=== PATIENT | female | born 1985 | race Asian ===

== ENCOUNTER 2025-02-26 17:00 | Emergency (ER) | payer MEDICAID, SELFPAY ==
[2025-02-26 17:02] VITALS: BMI 27.0
[2025-02-26 17:28] VITALS: BP 125/82; PULSE 95; RESP 16; TEMP 36.7; O2SAT 98; BMI 28.0
--- NOTE | 2025-02-26 17:47 | XR_ITS ---
Examination: OB Transvaginal ultrasound of the pelvis, complete Technique: Transvaginal sonographic images pelvis performed using talley scale imaging Exam date and time: February 26, 2025 at 1917 hrs. Indications: Vaginal bleeding and cramping beginning one week ago, history right ectopic 2019 Findings: Uterus 6.2 cm x 6.3 cm endometrial stripe 1.9 cm No intrauterine gestation Right ovary 2.9 cm arterial flow Left ovary 3.5 cm arterial flow with poorly defined ovarian borders, no adnexal gestational sac Impression: No intrauterine gestation Left ovary 3.5 cm arterial flow with poorly defined ovarian borders, early left ectopic would be included in the differential Recommend short-term follow-up transvaginal pelvic sonography
--- NOTE | 2025-02-26 17:47 | PD.EDRME ---
Rapid Medical Screening Exam RME Arrival date/time: 02/26/25 17:00 Chief Complaint: OB/Uterine Contractions Time Seen by Provider: 02/26/25 17:28 Vital signs: Vital Signs Temperature 98.0 F 02/26/25 17:28 Pulse Rate 95 02/26/25 17:28 Respiratory Rate 16 02/26/25 17:28 Blood Pressure 125/82 02/26/25 17:28 Pulse Oximetry (%) 98 02/26/25 17:28 Oxygen Delivery Method Room Air 02/26/25 17:28 Vital signs reviewed by provider: Yes RME Narrative: Female, AB/ectopic 1, presents to the ED after finding out she was yesterday and confirmed at the clinic today She is complaining of left lower pelvic cramping as well as bleeding. Her Billon SASH FINISHER is unknown as she has been very irregular, however she does think that it was approximately 2 months ago. Labs and OB less than 14-week ultrasound ordered and pending. I have greeted and performed a focused initial assessment of this patient. A comprehensive ED assessment and evaluation of the patient, analysis of all test results, and completion of the medical decision making process will be conducted by additional ED providers.
[2025-02-26 18:10] LABS: Basophils % (Auto) 0 % (0-2.5); Eosinophils # (Auto) 0.1 Thou/mm3 (0.0-0.5); Eosinophils % (Auto) 2 % (0-10); Hematocrit 34.9 % (36.0-46.0); Hemoglobin 11.9 g/dL (12.0-16.0); Immature Granulocytes % (Auto) 0 % (0-0); Immature Granulocytes Auto 0.02 Thou/mm3 (0.00-0.00); Lymphocytes % (Auto) 29 % (10-50); Mean Corpuscular HGB Conc 34.1 g/dl (31.0-37.0); Mean Corpuscular Volume 82 fL (80-100); Monocytes # (Auto) 0.7 Thou/mm3 (0.0-0.8); Monocytes % (Auto) 10 % (0-12); Neutrophils # (Auto) 4.1 Thou/mm3 (1.8-7.7); Neutrophils % (Auto) 59 % (37-80); Nucleated Red Blood Cell % 0 /100 WBC (0); Platelet Count 321 Thou/mm3 (140-440); RDW Standard Deviation 37.4 fL (36.4-46.3); Red Blood Count 4.25 Miln/mm3 (4.00-5.20)
[2025-02-26 18:46] LABS: Alanine Aminotransferase 16 U/L (10-49); Albumin/Globulin Ratio 1.7 (1.2-2.2); Alkaline Phosphatase 52 U/L (46-116); Anion Gap 8 (7-16); Aspartate Amino Transferase 17 U/L (0-34); BUN/Creatinine Ratio 11 Ratio (12-20); Beta HCG,Quantitative 416 mIU/mL (<5.0); Bilirubin,Total 0.7 mg/dL (0.3-1.2); Blood Urea Nitrogen 8 mg/dL (9-23); Calcium 9.7 mg/dL (8.3-10.6); Calcium (Corrected) 9.7 mg/dL (8.5-10.1); Carbon Dioxide 25.5 mMol/L (20.0-31.0); Chloride 105 mMol/L (98-107); Creatinine (Component) 0.7 mg/dL (0.6-1.3); Estimated Creatinine Clearance 94.7 mL/min (>60); Globulin 2.9 gm/dL (2.3-3.5); Glucose 95 mg/dL (74-106); Osmolality,Calculated 273 (275-295); Potassium 4.2 mMol/L (3.4-5.1); Sodium 138 mMol/L (136-145); Total Protein 7.9 gm/dL (5.7-8.2); eGFR > 60 See Note
[2025-02-26 20:03] LABS: Collection Type, Urine Clean Catch
[2025-02-26 20:15] LABS: Bilirubin,Urine Negative (Negative); Blood,Urine 3+ (Negative); Clarity,Urine Clear (Clear/Hazy); Color,Urine Colorless (Lt Yel-Yel); Culture Indicated,Urine Not Indicated; Glucose, Urine Negative (Negative); Ketones,Urine Negative (Negative); Leukocyte Esterase,Urine Negative (Negative); Nitrite,Urine Negative (Negative); PH,Urine 6.5 (5.0-7.0); Protein,Urine Negative (Neg - Trace); RBC,Urine 51 /hpf (0-3); Specific Gravity,Urine 1.007 (1.001-1.035); Squamous Epithelial Cell,Urine 1 /hpf (0-5); Urobilinogen,Urine Negative mg/dL (0.0-1.0); WBC,Urine 2 /hpf (0-5)
[2025-02-26 20:32] VITALS: BP 132/86; PULSE 68; RESP 18; O2SAT 98
--- NOTE | 2025-05-13 15:08 | PD.EDPREG ---
ED OB Contraction Preg RMI/HPI General Chief complaint: OB/Uterine Contractions Stated complaint: NEWLY W/ CRAMPING & BLEEDING Time Seen by Provider: 02/26/25 17:28 Arrival date/time: 02/26/25 17:00 RME / HPI RME / HPI Narrative: Female, AB/ectopic 1, presents to the ED after finding out she was yesterday and confirmed at the clinic today She is complaining of left lower pelvic cramping as well as bleeding. Her Billon VETERINARIAN ASSISTANT is unknown as she has been very irregular, however she does think that it was approximately 2 months ago. Labs and OB less than 14-week ultrasound ordered and pending. Related Data Home Medications ?Medication ?Instructions ?Recorded ?Confirmed atorvastatin 10 mg tablet 10 mg PO QDAY 02/27/25 03/13/25 metformin 500 mg tablet 500 mg PO QDAY 02/27/25 03/13/25 semaglutide 0.25 mg or 0.5 mg (2 0.25 mg subcut QWEEK 02/27/25 03/13/25 mg/1.5 mL) subcutaneous pen injector (Ozempic) Allergies Allergy/AdvReac Type Severity Reaction Status Date / Time No Known Allergies Allergy Verified 03/13/25 08:44 Review of Systems Review of Systems Systems Reviewed: All systems reviewed, normal except as documented Past Medical History Past Medical History NEUROLOGIC: Negative Cerebrovascular Accident, Transient Ischemic Attacks (TIA), Dementia, Alzheimer's Disease, Parkinson's Disease, Brain Tumor or Seizures CARDIAC: Negative Myocardial Infarction, Cardiac Arrhythmia, Atrial Fibrillation, Angina, Heart Murmur or Congestive Heart Failure RESPIRATORY: Negative Chronic Obstructive Pulmonary Disease (COPD), Asthma, Bronchitis, Emphysema, Pneumonia, Cough, Sputum Production, Wheezing, Chest Deformities, Smoking, Smoking Cessation Counseling, Smoking Exposure, Tobacco Use or Clubbing GASTROINTESTINAL: Negative Liver Cancer, Hepatitis, Cirrhosis, Pancreatic Cancer or Pancreatitis GENITOURINARY: Negative Renal Disease or Kidney Stones REPRODUCTIVE: Negative Breast Cancer, Endometriosis, Fibroids or Genital Herpes MUSCULOSKELETAL: Negative Muscular Dystrophy, Myasthenia Gravis, Marfan's Syndrome, Bone Cancer, Arthritis, Gout, Scoliosis or Carpal Tunnel Syndrome ENT: Negative Cataracts, Glaucoma, Blind, Retinal Detachment, Macular Degeneration or Ear Infection ENDOCRINE: Negative Diabetes Mellitus Type 1 or Diabetes Mellitus Type 2 HEMATOLOGIC: Negative Anemia, Leukemia, Hemophilia, Thalassemia, Sickle Cell Disease or Clotting Problems PSYCHO/SOCIAL: Negative Schizophrenia, Recreational Drug Use, Bipolar Disorder, Depression or Anxiety OTHER HISTORY: Positive Hospitalization; Negative Autoimmune Disease, Down Syndrome, Autism, Developmental Delay, Blood Transfusions, Blood Transfusion Reaction, Anesthesia Reactions or Breast Cancer Social History SMOKING STATUS: Never smoker SECOND HAND EXPOSURE: No Course Orders Category Date Time Status US OB transvaginal Stat Exams 02/26/25 17:47 Completed ABO/RH Type Stat Lab 02/26/25 18:05 Completed Beta HCG,Quantitative Stat Lab 02/26/25 18:20 Completed CBC Stat Lab 02/26/25 17:38 Completed CMP [Comprehensive Metabolic Panel] Stat Lab 02/26/25 18:20 Completed UA, C/S IF [Urinalysis, C/S if Indicated] Stat Lab 02/26/25 18:14 Completed Vital Signs Vital signs: Vital Signs Temperature 98.0 F 02/26/25 17:28 Pulse Rate 95 02/26/25 17:28 Respiratory Rate 16 02/26/25 17:28 Blood Pressure 125/82 02/26/25 17:28 Pulse Oximetry (%) 98 02/26/25 17:28 Oxygen Delivery Method Room Air 02/26/25 17:28 Discharge Plan Plan Patient Disposition: HOME (Self Care) Health Concerns: Discussed case with Dr. Thurman. Follow-up with your primary care physician in 24 to 48 hours. Return to the ED for any new or worsening symptoms.home and have patient follow up in his office tomorrow as a Walk-In. Prescriptions/Referrals Prescriptions/Med Rec: No Action metformin 500 mg tablet 500 mg PO QDAY atorvastatin 10 mg tablet 10 mg PO QDAY Ozempic 0.25 mg or 0.5 mg(2 mg/1.5 mL) pen injector 0.25 mg subcut QWEEK Rx Instructions: for 4 weeks Referrals: Chintan Thurman MD [Physician] - 02/27/25 (Go to his office as a Walk-In.) No Primary/Family,Physician [Primary Care Provider] - In 1 week Problem List Clinical Impression: Ectopic of left ovary Impression comment: Possible Early Left Ectopic Patient/Caregiver Discharge Instructions Education Materials: Ectopic Additional Instructions: Follow-up with Dr. Thurman tomorrow morning as a walk-in patient. Print Language: Algerian Stand Alone Forms: Bernadette Award Info., Patient Portal Info Letter PA/CAREER COACH Supervising Physician PA/CAREER COACH Supervising Physician: Dr. Lewis
--- NOTE | 2025-05-13 16:55 | EDNOTE_ITS ---
ED General RME/HPI General Chief complaint: OB/Uterine Contractions Stated complaint: NEWLY W/ CRAMPING & BLEEDING Time Seen by Provider: 02/26/25 17:28 Arrival date/time: 02/26/25 17:00 RME / HPI RME / HPI narrative: Female, AB/ectopic 1, presents to the ED after finding out she was yesterday and confirmed at the clinic today She is complaining of left lower pelvic cramping as well as bleeding. Her LMP is unknown as she has been very irregular, however she does think that it was approximately 2 months ago. Labs and OB less than 14-week ultrasound ordered and pending. Related Data Home Medications ?Medication ?Instructions ?Recorded ?Confirmed atorvastatin 10 mg tablet 10 mg PO QDAY 02/27/2503/13 metformin 500 mg tablet 500 mg PO QDAY 02/27/2502/14 semaglutide 0.25 mg or 0.5 mg (2 0.25 mg subcut QWEEK 02/27/25 03/13/25 mg/1.5 mL) subcutaneous pen injector (Ozempic) Allergies Allergy/AdvReac Type Severity Reaction Status Date / Time No Known Allergies Allergy Verified 03/13/25 08:44 Review of Systems Review of Systems Systems Reviewed: All systems reviewed, normal except as documented Past Medical History Past Medical History NEUROLOGIC: Negative Cerebrovascular Accident, Transient Ischemic Attacks (TIA), Dementia, Alzheimer's Disease, Parkinson's Disease, Brain Tumor or Seizures CARDIAC: Negative Myocardial Infarction, Cardiac Arrhythmia, Atrial Fibrillation, Angina, Heart Murmur or Congestive Heart Failure RESPIRATORY: Negative Chronic Obstructive Pulmonary Disease (COPD), Asthma, Bronchitis, Emphysema, Pneumonia, Cough, Sputum Production, Wheezing, Chest Deformities, Smoking, Smoking Cessation Counseling, Smoking Exposure, Tobacco Use or Clubbing GASTROINTESTINAL: Negative Liver Cancer, Hepatitis, Cirrhosis, Pancreatic Cancer or Pancreatitis GENITOURINARY: Negative Renal Disease or Kidney Stones REPRODUCTIVE: Negative Breast Cancer, Endometriosis, Fibroids or Genital Herpes MUSCULOSKELETAL: Negative Muscular Dystrophy, Myasthenia Gravis, Marfan's Syndrome, Bone Cancer, Arthritis, Gout, Scoliosis or Carpal Tunnel Syndrome ENT: Negative Cataracts, Glaucoma, Blind, Retinal Detachment, Macular Degeneration or Ear Infection ENDOCRINE: Negative Diabetes Mellitus Type 1 or Diabetes Mellitus Type 2 HEMATOLOGIC: Negative Anemia, Leukemia, Hemophilia, Thalassemia, Sickle Cell Disease or Clotting Problems PSYCHO/SOCIAL: Negative Schizophrenia, Recreational Drug Use, Bipolar Disorder, Depression or Anxiety OTHER HISTORY: Positive Hospitalization; Negative Autoimmune Disease, Down Syndrome, Autism, Developmental Delay, Blood Transfusions, Blood Transfusion Reaction, Anesthesia Reactions or Breast Cancer Social History SMOKING STATUS: Never smoker SECOND HAND EXPOSURE: No Course Orders Category Date Time Status US OB transvaginal Stat Exams 02/26/25 17:47 Completed ABO/RH Type Stat Lab 02/26/25 18:05 Completed Beta HCG,Quantitative Stat Lab 02/26/25 18:20 Completed CBC Stat Lab 02/26/25 17:38 Completed CMP [Comprehensive Metabolic Panel] Stat Lab 02/26/25 18:20 Completed UA, C/S IF [Urinalysis, C/S if Indicated] Stat Lab 02/26/25 18:14 Completed Vital Signs Vital signs: Vital Signs Temperature 98.0 F 02/26/25 17:28 Pulse Rate 95 02/26/25 17:28 Respiratory Rate 16 02/26/25 17:28 Blood Pressure 125/82 02/26/25 17:28 Pulse Oximetry (%) 98 02/26/25 17:28 Oxygen Delivery Method Room Air 02/26/25 17:28 Discharge Plan Plan Patient Disposition: HOME (Self Care) Health Concerns: Discussed case with Dr. Thurman. Follow-up with your primary care physician in 24 to 48 hours. Return to the ED for any new or worsening symptoms.home and have patient follow up in his office tomorrow as a Walk-In. Prescriptions/Referrals Prescriptions/Med Rec: No Action metformin 500 mg tablet 500 mg PO QDAY atorvastatin 10 mg tablet 10 mg PO QDAY Ozempic 0.25 mg or 0.5 mg(2 mg/1.5 mL) pen injector 0.25 mg subcut QWEEK Rx Instructions: for 4 weeks Referrals: Chintan Thurman MD [Physician] - 02/27/25 (Go to his office as a Walk-In.) No Primary/Family,Physician [Primary Care Provider] - In 1 week Problem List Clinical Impression: Ectopic of left ovary Impression comment: Possible Early Left Ectopic Patient/Caregiver Discharge Instructions Education Materials: Ectopic Additional Instructions: Follow-up with Dr. Thurman tomorrow morning as a walk-in patient. Print Language: Kazakh Stand Alone Forms: Bernadette Award Info., Patient Portal Info Letter PA/MAIL DISTRIBUTION SCHEME EXAMINER Supervising Physician PA/MAIL DISTRIBUTION SCHEME EXAMINER Supervising Physician: Dr. Lewis
== END 2025-02-26 20:33 | disposition home or self-care (01) ==
PROVIDERS: Emergency Provider Physician Assistant
DX: O00.202 Left ovarian pregnancy without intrauterine pregnancy (principal)
CPT/HCPCS: 36415; 76817; 80053; 81001; 84702; 85025; 86900; 86901; 99284

== ENCOUNTER 2025-02-27 09:08 | Outpatient (AMB) | payer MEDICAID, SELFPAY ==
[2025-02-27 09:52] VITALS: BP 114/75; PULSE 87; RESP 16; TEMP 36.4; O2SAT 98; BMI 27.8
--- NOTE | 2025-02-27 09:52 | GYNCLNT_ITS ---
Vital Signs 02/27/25 09:52 Height 1.55 m Height Method Stated Weight 66.791 kg Weight Measurement Method Standing Scale BMI 27.8 BP 114/75 Blood Pressure Source Automatic Cuff Blood Pressure Location Left Upper Arm Position Sitting Respiration 16 Pulse 87 Pulse Source Monitor Temp 97.6 F Temp Source Oral Pulse Oximetry (%) 98 Oxygen Delivery Method Room Air Allergies/Home Meds Allergies & Medications Allergies No Known Allergies Allergy (Verified 02/27/25 09:53) Medication Reconciliation atorvastatin 10 mg tablet 10 mg PO QDAY 02/27/25 [History Confirmed 02/27/25] metformin 500 mg tablet 500 mg PO QDAY 02/27/25 [History Confirmed 02/27/25] semaglutide 0.25 mg or 0.5 mg (2 mg/1.5 mL) subcutaneous pen injector (Ozempic) 0.25 mg subcut QWEEK 02/27/25 [History Confirmed 02/27/25] Intake Visit Data Collection New Patient or Established: Established Patient (seen at [facility] within 3 years) Reason for Visit:: EMERGENCY ROOM FOLLOW UP Seen by Clinical Staff ONLY (RN/MA): No Kitchen Work Supervisor Required: No Do You Feel Safe at Home: Yes Authorities Contacted: N/A PCP or OBGYN visit in last 3 months: No Hx Now: No Are you currently on any form of Control: Yes Last menstrual period: 01/11/25 Pain Present Currently: No Pain Scale Used: Castellon-Sky/Numerical Pain scale:: 0 Smoking Status Smoking Status: Never smoker Email Operations Manager history Email Operations Manager History Menstrual regularity: irregular Flow: normal Monthly: No How many days does period last: 6 Age at menarche: 13 Currently sexually active: Yes Questionnaires Covid-19 Vaccine Questionnaire Has patient been vacinated for Covid-19 Have you been vacinated for Covid-19: Yes PHQ-9 PHQ-2 Over the last 2 weeks, how often have you been bothered by any of the following problems? 1. Little interest or pleasure in doing things: not at all 2. Feeling down, depressed, or hopeless: not at all Total score: 0 PHQ-9 3. Trouble falling or staying asleep, or sleeping too much: Not at all 4. Feeling tired or having little energy: Not at all 5. Poor appetite or overeating: Not at all 6. Feeling bad about yourself - or that you are a failure or have let yourself or your family down: Not at all 7. Trouble concentrating on things, such as reading the newspaper or watching television: Not at all 8. Moving or speaking so slowly that other people could have noticed? - Or the opposite - being so fidgety or restless that you have been moving around a lot more than usual: not at all 9. Thoughts that you would be better off or of hurting yourself in some way: Not at all Total score: 0 Source: Developed by Drs. Inderjit Mcfarlane, Nelida Alvarez, Raymond Busch and colleagues, with an educational lamberto from [employer]. Depression screen completed yes Social History Tobacco History Smoking Status: Never smoker Domestic Abuse History Do You Feel Safe at Home: Yes Past Medical History Past Medical History Have you ever been diagnosed with any of the following: Neurological Problems Cerebrovascular Accident (CVA): No Transient Ischemic Attacks (TIA): No Dementia: No Alzheimer's Disease: No Parkinson's Disease: No Brain Tumor: No Seizures: No Cardiology Problems Myocardial Infarction: No Cardiac Arrhythmia: No Atrial Fibrillation: No Angina: No Heart Murmur: No Congestive Heart Failure: No Respiratory Problems Chronic Obstructive Pulmonary Disease (COPD): No Asthma: No Bronchitis: No Emphysema: No Pneumonia: No Hx Cough: No Cough: No Wheezing: No Chest Deformities: No Smoking: No Smoking Cessation Counseling: No Smoking Exposure: No Tobacco Use: No Clubbing: No Stomache/Intestinal Problems Liver Cancer: No Hepatitis: No Cirrhosis: No Pancreatic Cancer: No Pancreatitis: No Genital/Urinary Problems Chronic Kidney Disease: No Renal Disease: No Kidney Stones: No Reproductive Problems Breast Cancer: No Endometriosis: No Fibroids: No Genital Herpes: No Musculoskeletal Problems Muscular Dystrophy: No Myasthenia Gravis: No Marfan's Syndrome: No Bone Cancer: No Arthritis: No Gout: No Scoliosis: No Carpal Tunnel Syndrome: No Head,Eye,Nose,Throat Problems Cataracts: No Glaucoma: No Blind: No Retinal Detachment: No Macular Degeneration: No Chronic Ear Infections: No Blood Problems Anemia: No Leukemia: No Hemophilia: No Thalassemia: No Sickle Cell Disease: No Clotting Problems: No Psychologic Problems Schizophrenia: No Recreational Drug Use: No Bipolar Disorder: No Depression: No Anxiety: No Other Problems Hospitalization: Yes Autoimmune Disease: No Down Syndrome: No Autism: No Developmental Delay: No Blood Transfusions: No Blood Transfusion Reaction: No Anesthesia Reactions: No Surgical History Angioplasty: No Appendectomy: No Bariatric Surgery: No History of Present Illness HPI Narrative Chief Complaint Vaginal bleeding and cramping for 10 days, follow-up from ER evaluation History of Present Illness Kaelyn Carbone, a patient with a history of right ectopic in 2019, presents for follow-up after an ER evaluation yesterday for vaginal bleeding and cramping. The patient reports that her vaginal bleeding and cramping began 10 days ago, on a Tuesday. She was unaware of her until she took a test, which came back positive. Kaelyn states she was not trying to conceive and was surprised by the positive result. She expresses concern about medications she was taking, specifically atorvastatin, but was reassured that this medication does not cause miscarriages or ectopic pregnancies. Kaelyn mentions that she and her partner had been drinking alcohol around the time of conception, as they had family visiting and were unaware of the . She is currently on vacation and planning a trip to [facility], expressing some worry about her health given her previous ectopic experience, which required emergency surgery. The patient is currently not working and is on vacation. She is considering taking a week off from work upon her return. Kaelyn also mentions that she is in the process of reviewing her insurance coverage and may be applying for Cover [place]. Medical History - Right ectopic in 2019 Surgical History - Right ectopic in 2019, treated surgically Medications and Supplements - Atorvastatin - Ozempic - Discontinued Social History - Substance Use: Recent alcohol consumption during family visit - Occupation: Currently on vacation, returning to work next Tuesday - Travel: Planned trip to [facility] Review of Systems Genitourinary: Positive for vaginal bleeding. Laboratory, Imaging, and Diagnostic Test Results - Date: 02/26/2025 (yesterday) - [facility] - Transvaginal ultrasound (02/26/2025): - No intrauterine gestation - Left ovary 3.5 cm with axial floor - Poorly defined ovarian borders Exam General Limitations: no limitations General Appearance: alert, in no apparent distress, comfortable, cooperative, healthy appearing, well developed and well groomed Chest Chest inspection: Present normal inspection and symmetric chest wall rise Abdominal Abdominal exam: Present soft and normal bowel sounds Psych Psychiatric exam: Present normal affect and normal mood Skin Skin exam: Present warm, dry, intact and normal color Assessment & Plan Diagnosis / Problem List (1) Ectopic of right ovary: Status: Acute Plan February Raf presents for follow-up after ER evaluation yesterday for vaginal bleeding and cramping that began 10 days ago, with a history of right ectopic in 2019. Vaginal bleeding with positive test Assessment: Patient presents with 10 days of vaginal bleeding and cramping. ER evaluation yesterday revealed CRMHCG of 416 and transvaginal ultrasound showing no intrauterine gestation, left ovary 3.5 cm with axial floor and poorly defined ovarian borders. While early left ectopic was included in the differential diagnosis, clinical presentation is more consistent with a miscarriage. Bleeding for 10 days is atypical for ectopic , which usually presents with pain due to intra-abdominal bleeding rather than vaginal bleeding. Patient reports taking atorvastatin, which is not associated with miscarriage or ectopic . Plan: - Repeat quantitative HCG test on Tuesday (4 days from now) - Follow-up appointment on Tuesday to review HCG results - If HCG has decreased, no further imaging needed - If HCG has increased, schedule follow-up transvaginal ultrasound - Patient advised it is safe to travel to [facility], returning Tuesday - Recommend abstaining from alcohol consumption until status is clarified - Provided [facility] requisition for HCG test Work-related concerns Assessment: Patient expresses concern about returning to work given her current medical situation. She is currently on vacation and scheduled to return to work next Tuesday. Plan: - Patient to remain off work for the current week - Follow-up appointment scheduled for Tuesday to reassess work status before planned return on Tuesday - Will provide work excuse letter if needed after Tuesday's appointment Office Procedures OB Clinic LOC & Office Proc's Nursing/Assessment Patient Status: Established Patient OB Clinic Nursing Assessment: Medication Reconciliation, Update PMH in EMR and Vital Signs OB Clinic Coordination of Care: Complex Care and Chronic Disease 1-5, Consent,records obtained, informed consent, Education Simp Pt/Fam, Results/Orders obtained and Staff clarify orders Established Patient Charge Established Patient Point Assignment: 90 Established Patient Point Charge: EP Level 3 (80-115)
== END 2025-02-27 10:08 | disposition home or self-care (01) ==
LOC: HODSOBC 09:08
PROVIDERS: Supervising Provider Obstetrics & Gynecology; Visit Provider Obstetrics & Gynecology
DX: O00.201 Right ovarian pregnancy without intrauterine pregnancy (principal); Z87.59 Personal history of other complications of pregnancy, childbirth and the puerperium
CPT/HCPCS: 99213; G0463

== ENCOUNTER 2025-03-05 08:28 | Outpatient (AMB) | payer MEDICAID, SELFPAY ==
--- NOTE | 2025-03-05 08:28 | GYNCLNT_ITS ---
Vital Signs 03/05/25 08:39 Height 1.55 m Height Method Stated Weight 66.735 kg Weight Measurement Method Standing Scale BMI 27.8 BP 119/79 Blood Pressure Source Automatic Cuff Blood Pressure Location Right Upper Arm Position Sitting Respiration 18 Pulse 88 Pulse Source Monitor Temp 98.3 F Temp Source Temporal Artery Scan Pulse Oximetry (%) 98 Oxygen Delivery Method Room Air Allergies/Home Meds Allergies & Medications Allergies No Known Allergies Allergy (Verified 03/05/25 08:39) Medication Reconciliation atorvastatin 10 mg tablet 10 mg PO QDAY 02/27/25 [History Confirmed 03/05/25] metformin 500 mg tablet 500 mg PO QDAY 02/27/25 [History Confirmed 03/05/25] semaglutide 0.25 mg or 0.5 mg (2 mg/1.5 mL) subcutaneous pen injector (Ozempic) 0.25 mg subcut QWEEK 02/27/25 [History Confirmed 03/05/25] Intake Visit Data Collection New Patient or Established: Established Patient (seen at [facility] within 3 years) Reason for Visit:: Heavy vaginal bleeding with big clots , cramping, passed placental tissue Seen by Clinical Staff ONLY (RN/MA): No Air Conditioning Mechanic Required: No Do You Feel Safe at Home: Yes Authorities Contacted: N/A PCP or OBGYN visit in last 3 months: Yes Are you currently on any form of Control: Yes Last menstrual period: 01/11/25 Pain Present Currently: No Pain Scale Used: Castellon-Sky/Numerical Pain scale:: 0 Smoking Status Smoking Status: Never smoker Cancer Registry Manager history Cancer Registry Manager History Menstrual regularity: irregular Flow: heavy (it varies) Monthly: No How many days does period last: 6 Age at menarche: 13 Menopausal: No Questionnaires Covid-19 Vaccine Questionnaire Has patient been vacinated for Covid-19 Have you been vacinated for Covid-19: Yes PHQ-9 PHQ-2 Over the last 2 weeks, how often have you been bothered by any of the following problems? 1. Little interest or pleasure in doing things: not at all PHQ-9 8. Moving or speaking so slowly that other people could have noticed? - Or the opposite - being so fidgety or restless that you have been moving around a lot more than usual: not at all Source: Developed by Drs. Inderjit Mcfarlane, Nelida BRaymond Humphrey and colleagues, with an educational lamberto from [employer]. Social History Tobacco History Smoking Status: Never smoker Domestic Abuse History Do You Feel Safe at Home: Yes Past Medical History Past Medical History Have you ever been diagnosed with any of the following: Neurological Problems Cerebrovascular Accident (CVA): No Transient Ischemic Attacks (TIA): No Dementia: No Alzheimer's Disease: No Parkinson's Disease: No Brain Tumor: No Seizures: No Cardiology Problems Myocardial Infarction: No Cardiac Arrhythmia: No Atrial Fibrillation: No Angina: No Heart Murmur: No Congestive Heart Failure: No Respiratory Problems Chronic Obstructive Pulmonary Disease (COPD): No Asthma: No Bronchitis: No Emphysema: No Pneumonia: No Hx Cough: No Cough: No Wheezing: No Chest Deformities: No Smoking: No Smoking Cessation Counseling: No Smoking Exposure: No Tobacco Use: No Clubbing: No Stomache/Intestinal Problems Liver Cancer: No Hepatitis: No Cirrhosis: No Pancreatic Cancer: No Pancreatitis: No Genital/Urinary Problems Renal Disease: No Kidney Stones: No Reproductive Problems Breast Cancer: No Endometriosis: No Fibroids: No Genital Herpes: No Musculoskeletal Problems Muscular Dystrophy: No Myasthenia Gravis: No Marfan's Syndrome: No Bone Cancer: No Arthritis: No Gout: No Scoliosis: No Carpal Tunnel Syndrome: No Head,Eye,Nose,Throat Problems Cataracts: No Glaucoma: No Blind: No Retinal Detachment: No Macular Degeneration: No Chronic Ear Infections: No Endocrine Problems Diabetes Mellitus Type 1: No Diabetes Mellitus Type 2: No Blood Problems Anemia: No Leukemia: No Hemophilia: No Thalassemia: No Sickle Cell Disease: No Clotting Problems: No Psychologic Problems Schizophrenia: No Recreational Drug Use: No Bipolar Disorder: No Depression: No Anxiety: No Other Problems Hospitalization: Yes Down Syndrome: No Autism: No Developmental Delay: No Blood Transfusions: No Blood Transfusion Reaction: No Anesthesia Reactions: No Surgical History Angioplasty: No Appendectomy: No Bariatric Surgery: No History of Present Illness HPI Narrative Kaelyn Raf presents with heavy vaginal bleeding and cramping following a recent early complication. The patient was seen 4 days ago for bleeding in early with suspicion of right ectopic , but deferred intervention due to scheduled travel. The patient reports experiencing heavy vaginal bleeding, similar in intensity to her menstrual period. She notes passing large blood clots when using the toilet. Associated symptoms include cramping, which tends to precede the passage of more blood and clots. The bleeding pattern has been fluctuating, with periods of increased and decreased flow. February also mentions passing what appeared to be placental tissue, which she has retained in her trash can. The patient's bleeding has persisted since her last visit 4 days ago, with no significant improvement noted. [facility], though results are still pending. The impact of these symptoms on her daily functioning is not explicitly mentioned, but the persistence and severity of her symptoms have prompted this follow-up visit. Review of Systems Genitourinary: Positive for heavy vaginal bleeding with large clots. Other: Positive for cramping. Review of Systems Review of Systems Systems Reviewed: All systems reviewed, normal except as documented Exam General Limitations: no limitations General Appearance: alert, in no apparent distress, comfortable, cooperative, healthy appearing, well developed and well groomed Head Head exam: atraumatic, normocephalic and normal inspection Neck Neck exam: Present normal inspection, full ROM and trachea midline Chest Chest inspection: Present normal inspection and symmetric chest wall rise Abdominal Abdominal exam: Present soft and normal bowel sounds Psych Psychiatric exam: Present normal affect and normal mood Skin Skin exam: Present warm, dry, intact and normal color Assessment & Plan Diagnosis / Problem List (1) Ectopic of left ovary: Status: Acute (2) Incomplete : Status: Acute Plan Kaelyn Raf, female patient, presenting with heavy vaginal bleeding with clots and cramping following a recent loss, with a history of ectopic . Incomplete spontaneous Assessment: Patient presents with heavy vaginal bleeding, passing large clots, and cramping. She recently experienced a loss and passed what appears to be placental tissue, which she has retained. An ultrasound 4 days ago showed a suspicion for right ectopic , but the current clinical picture is more consistent with an incomplete spontaneous . Serum tests were performed yesterday, but results are still pending. The bleeding pattern described (heavy flow with clots and cramping) suggests retained products of conception. Plan: - Patient to proceed to Emergency Room for further evaluation - Perform repeat ultrasound to assess for retained products of conception and rule out ectopic - Collect and send retained tissue specimen to laboratory for analysis - Recommend dilation and curettage (D&C) procedure - Discuss risks, benefits, and alternatives with patient - Patient verbalized understanding and agreed to proceed with D&C - Schedule D&C procedure for today, pending ER evaluation results - Instruct patient to bring retained tissue specimen in provided container - Follow up with patient post-procedure to ensure resolution of symptoms Office Procedures OB Clinic LOC & Office Proc's Nursing/Assessment Patient Status: Established Patient OB Clinic Nursing Assessment: Medication Reconciliation, Update PMH in EMR and Vital Signs OB Clinic Coordination of Care: Complex Care and Chronic Disease 1-5, Consent,records obtained, informed consent, Education Simp Pt/Fam, Results/Orders obtained and Staff clarify orders Established Patient Charge Established Patient Point Assignment: 90 Established Patient Point Charge: EP Level 3 (80-115)
[2025-03-05 08:39] VITALS: BP 119/79; PULSE 88; RESP 18; TEMP 36.8; O2SAT 98; BMI 27.8
== END 2025-03-05 08:55 | disposition home or self-care (01) ==
LOC: HODSOBC 08:28
PROVIDERS: PCP Obstetrics & Gynecology; Referring Provider Obstetrics & Gynecology; Supervising Provider Obstetrics & Gynecology; Visit Provider Obstetrics & Gynecology
DX: O03.4 Incomplete spontaneous abortion without complication (principal)
CPT/HCPCS: 99213; G0463

== ENCOUNTER 2025-03-05 10:46 | Day surgery (SDC) | payer MEDICAID, SELFPAY ==
[2025-03-05] VITALS (8 sets, daily range): BP systolic 118–141; BP diastolic 74–89; PULSE 69–90; RESP 14–19; TEMP 36.8–37.1; O2SAT 97–100; BMI 27.8
--- NOTE | 2025-03-05 11:06 | PD.EDRME ---
Rapid Medical Screening Exam E Arrival date/time: 03/05/25 10:46 40-year-old female with a history of hypertension, hyperlipidemia, previous ectopic presents to the emergency room with a chief complaint of vaginal bleeding bilateral pelvic pain x 3 days. Patient states her last menstrual was in mid December. Patient was sent to the emergency room by Dr. Thurman for a D&C. I have greeted and performed a focused initial assessment of this patient. A comprehensive ED assessment and evaluation of the patient, analysis of all test results, and completion of the medical decision making process will be conducted by additional ED providers. Chief Complaint: General Adult/Misc Complain Vital signs: Vital Signs Temperature 98.2 F 03/05/25 11:00 Pulse Rate 90 03/05/25 11:00 Respiratory Rate 19 03/05/25 11:00 Blood Pressure 130/86 H 03/05/25 11:00 Pulse Oximetry (%) 97 03/05/25 11:00 Oxygen Delivery Method Room Air 03/05/25 11:00 Vital signs reviewed by provider: Yes
[2025-03-05 12:14] LABS: Basophils % (Auto) 0 % (0-2.5); Eosinophils # (Auto) 0.2 Thou/mm3 (0.0-0.5); Eosinophils % (Auto) 2 % (0-10); Hematocrit 33.4 % (36.0-46.0); Hemoglobin 11.3 g/dL (12.0-16.0); Immature Granulocytes % (Auto) 0 % (0-0); Immature Granulocytes Auto 0.03 Thou/mm3 (0.00-0.00); Lymphocytes # (Auto) 2.1 Thou/mm3 (1.0-4.8); Lymphocytes % (Auto) 28 % (10-50); Mean Corpuscular HGB Conc 33.8 g/dl (31.0-37.0); Mean Corpuscular Hemoglobin 27.3 pg (25.0-35.0); Mean Corpuscular Volume 81 fL (80-100); Monocytes # (Auto) 0.6 Thou/mm3 (0.0-0.8); Monocytes % (Auto) 8 % (0-12); Neutrophils # (Auto) 4.6 Thou/mm3 (1.8-7.7); Neutrophils % (Auto) 62 % (37-80); Nucleated Red Blood Cell % 0 /100 WBC (0); Platelet Count 305 Thou/mm3 (140-440); RDW Standard Deviation 37.1 fL (36.4-46.3); Red Blood Count 4.14 Miln/mm3 (4.00-5.20); White Blood Count 7.4 Thou/mm3 (3.6-11.0)
--- NOTE | 2025-03-05 12:20 | XR_ITS ---
Examination: Transvaginal ultrasound of the pelvis, complete Technique: Transvaginal sonographic images pelvis performed using talley scale imaging Exam date and time: March 05, 2020 0504 hours INDICATIONS: Vaginal bleeding and pelvic pain beginning 15 days ago FINDINGS: Uterus 8.8 cm endometrial stripe 10 mm No uterine mass or intrauterine gestation Right ovary 1.9 cm arterial flow Left 1.6 cm arterial flow Fluid in the cul-de-sac IMPRESSION: Mass or intrauterine gestation.
[2025-03-05 12:22] LABS: Beta HCG,Quantitative 270 mIU/mL (<5.0)
--- NOTE | 2025-03-05 17:15 | ESOP_ITS ---
Operative Note - TUTORING CLINICIAN Procedure Date of procedure: 03/05/25 Procedure Performed: Suction dilatation and curettage Indication: 40-year-old with missed with retained products of conception Anesthesia type: General Procedure description: Informed consent was obtained and the patient was taken to the operating room.? Identity was confirmed by double identifiers and she was placed on the operating table.? General anesthesia was administered and she was now positioned on Chris stirrups in the dorsal lithotomy position.? The perineum was prepped in the usual sterile fashion and sterile drapes were applied.? A straight catheter was used to empty the bladder. A weighted speculum was placed in the posterior vaginal wall.? A right angle retractor was used to retract the anterior wall.? A single-tooth tenaculum was used to grasp the anterior lip of the cervix and the cervix was placed under traction.? The cervical length from the external to the internal loss was measured, and a uterine sound was used to measure the uterine length.? The cervix was noted to be dilated to about 10 mm.? A 10 mm suction cannula was introduced and multiple gentle passes were made until all tissue and blood clots were evacuated.? Endometrial great was palpated, and the uterus was noted to contract down.? The suction cannula was removed and a gentle curettage was performed using a standard curette.? All instruments were now withdrawn.? Uterine bleeding was noted to be minimal\ The tenaculum was removed from the cervix.? The cervix was visualized and noted to be adequately hemostatic.? The speculum was removed from the vaginal canal.? The patient was now cleaned, undraped, taken out of lithotomy position, general anesthesia was reversed and she was not transferred to recovery room in stable and awake condition.? The patient tolerated the entire procedure well.? All instrument, sponge and lap counts were correct x2. Estimated blood loss (ml): 150 Complications: none Surgical staff Operation Date: 03/05/25 14:45 <No data on this case meets the specified criteria> Diagnosis Discharge Diagnosis (1) Incomplete : Status: Acute Problem List Completed Was Problem List Reviewed/Reconciled?: Yes
--- NOTE | 2025-03-05 19:04 | SUR.PHASEI ---
1721: Pt received in Pac[facility] via gurney. Oral airway in place. Resp even, unlabored. No vaginal bleeding. 1730: Oral airway dc'd. Resp even, unlabored. 1750: Pt has been resting with no complaints voiced. Resp even, unlabored. VS stable. No vaginal bleeding.
--- NOTE | 2025-03-05 19:07 | SUR.PHASEII ---
1814: Pt more awake, alert. VS stable. Denies pain. No vaginal bleeding. Sitting up tolerating po fluids with no difficulty swallowing and no n/v. 1836: Pt fully awake, oriented x3. VS stable. Denies pain. Pt and stated understanding of discharge instructions. had left earlier to pickling operator prescriptions. Pt discharged from [facility] in stable condition.
== END 2025-03-05 18:37 | disposition home or self-care (01) ==
LOC: SERX 11:45 → S2EX 11:51
PROVIDERS: Nurse Practitioner Family; Emergency Provider Family Medicine; PCP Physician Assistant; Visit Provider Obstetrics & Gynecology
PROC: (CPT 58120; principal; 2025-03-05 14:30)
DX: O03.4 Incomplete spontaneous abortion without complication (principal)
CPT/HCPCS: 59812; 36415; 76830; 84702; 85025; 86850; 86900; 86901; 99285; A4217; J1100; J1885; J2210; J2250; J2405; J2704; J3010

== ENCOUNTER 2025-03-13 08:22 | Outpatient (AMB) | payer MEDICAID, SELFPAY ==
--- NOTE | 2025-03-13 08:36 | GYNCLNT_ITS ---
Vital Signs 03/13/25 08:42 Height 1.55 m Height Method Stated Weight 66.735 kg Weight Measurement Method Standing Scale BMI 27.8 BP 118/81 Blood Pressure Source Automatic Cuff Blood Pressure Location Left Upper Arm Position Sitting Respiration 18 Pulse 86 Pulse Source Monitor Temp 97.2 F Temp Source Oral Pulse Oximetry (%) 99 Oxygen Delivery Method Room Air Allergies/Home Meds Allergies & Medications Allergies No Known Allergies Allergy (Verified 03/13/25 08:44) Medication Reconciliation atorvastatin 10 mg tablet 10 mg PO QDAY 02/27/25 [History Confirmed 03/13/25] metformin 500 mg tablet 500 mg PO QDAY 02/27/25 [History Confirmed 03/13/25] semaglutide 0.25 mg or 0.5 mg (2 mg/1.5 mL) subcutaneous pen injector (Ozempic) 0.25 mg subcut QWEEK 02/27/25 [History Confirmed 03/13/25] ibuprofen 600 mg tablet 600 mg PO Q6H PRN fever or pain 10 days #40 tabs 03/05/25 [Rx Confirmed 03/13/25] diclofenac potassium 50 mg tablet 50 mg PO TID 10 days #30 tabs 03/13/25 [Rx] estradiol 0.5 mg tablet 0.5 mg PO QDAY 23 days #23 tabs 03/13/25 [Rx] metronidazole 500 mg tablet 500 mg PO BID 7 days #14 tabs 03/13/25 [Rx] Intake Visit Data Collection New Patient or Established: Established Patient (seen at 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 1. Little interest or pleasure in doing things: not at all 2. Feeling down, depressed, or hopeless: not at all Total score: 0 PHQ-9 3. Trouble falling or staying asleep, or sleeping too much: Not at all 4. Feeling tired or having little energy: Not at all 5. Poor appetite or overeating: Not at all 6. Feeling bad about yourself - or that you are a failure or have let yourself or your family down: Not at all 7. Trouble concentrating on things, such as reading the newspaper or watching television: Not at all 8. Moving or speaking so slowly that other people could have noticed? - Or the opposite - being so fidgety or restless that you have been moving around a lot more than usual: not at all 9. Thoughts that you would be better off or of hurting yourself in some way: Not at all Total score: 0 If you checked off any problems, how difficult have these problems made it for you to do your work, take care of things at home, or get along with other people?: not difficult at all Source: Developed by Drs. Inderjit Mcfarlane, Nelida Alvarez, Raymond Busch and colleagues, with an educational lamberto from [employer]. Depression screen completed yes Social History Living Situation History Marital Status: Lives With: Family Housing: House Tobacco History Smoking Status: Never smoker Second Hand Smoke Exposure: No Alcohol History Alcohol Intake: Never Domestic Abuse History Do You Feel Safe at Home: Yes Past Medical History Past Medical History Have you ever been diagnosed with any of the following: Neurological Problems Cerebrovascular Accident (CVA): No Transient Ischemic Attacks (TIA): No Dementia: No Alzheimer's Disease: No Parkinson's Disease: No Brain Tumor: No Seizures: No Cardiology Problems Myocardial Infarction: No Cardiac Arrhythmia: No Atrial Fibrillation: No Angina: No Heart Murmur: No Congestive Heart Failure: No Respiratory Problems Chronic Obstructive Pulmonary Disease (COPD): No Asthma: No Bronchitis: No Emphysema: No Pneumonia: No Hx Cough: No Cough: No Wheezing: No Chest Deformities: No Smoking: No Smoking Cessation Counseling: No Smoking Exposure: No Tobacco Use: No Clubbing: No Stomache/Intestinal Problems Liver Cancer: No Hepatitis: No Cirrhosis: No Pancreatic Cancer: No Pancreatitis: No Genital/Urinary Problems Renal Disease: No Kidney Stones: No Reproductive Problems Breast Cancer: No Endometriosis: No Fibroids: No Genital Herpes: No Musculoskeletal Problems Muscular Dystrophy: No Myasthenia Gravis: No Marfan's Syndrome: No Bone Cancer: No Arthritis: No Gout: No Scoliosis: No Carpal Tunnel Syndrome: No Head,Eye,Nose,Throat Problems Cataracts: No Glaucoma: No Blind: No Retinal Detachment: No Macular Degeneration: No Chronic Ear Infections: No Endocrine Problems Diabetes Mellitus Type 1: No Diabetes Mellitus Type 2: No Blood Problems Anemia: No Leukemia: No Hemophilia: No Thalassemia: No Sickle Cell Disease: No Clotting Problems: No Psychologic Problems Schizophrenia: No Recreational Drug Use: No Bipolar Disorder: No Depression: No Anxiety: No Other Problems Hospitalization: Yes Down Syndrome: No Autism: No Developmental Delay: No Blood Transfusions: No Blood Transfusion Reaction: No Anesthesia Reactions: No Surgical History Angioplasty: No Appendectomy: No Bariatric Surgery: No History of Present Illness HPI Narrative Kaelyn Carbone presents for follow-up after a recent miscarriage and procedure. She reports experiencing severe cramping pain last night, which nearly prompted an ER visit. The patient describes the pain as constant and intense, causing significant discomfort and sleep disturbance. She notes that the bleeding is now more like period bleeding. The cramping was particularly severe yesterday, and she provides photographic evidence of the heavy bleeding. Despite the pain and bleeding, the patient denies any current active bleeding. Kaelyn expresses emotional distress related to her recent miscarriage. She mentio ns experiencing mixed emotions, particularly when alone, and reports a tendency to overthink, which exacerbates her emotional state. The patient's symptoms and emotional state have impacted her ability to work, necessitating time off and FMLA paperwork. The patient inquires about the persistence of positive tests post- miscarriage. She also expresses concern about the intensity of her recent cramping, which she found alarming and does not wish to experience again. Review of Systems General: Positive for fatigue. Genitourinary: Positive for vaginal bleeding. Musculoskeletal: Positive for cramping pain. Psychiatric: Positive for mixed emotions, overthinking. Exam General General Appearance: alert, in no apparent distress and healthy appearing Head Head exam: atraumatic Neck Neck exam: Present normal inspection and trachea midline Chest Chest inspection: Present normal inspection and symmetric chest wall rise External exam: Present normal external exam; Absent tenderness Neuro Neurological exam: Present oriented X3 Psych Psychiatric exam: Present normal affect and normal mood Assessment & Plan Diagnosis / Problem List (1) Dysmenorrhea: Status: Acute (2) Incomplete : Status: Acute (3) Ectopic of right ovary: Status: Acute Plan February Carbone, female patient, presenting with ongoing pain and bleeding following a recent miscarriage and uterine procedure. Post-miscarriage complications Assessment: Patient reports intense, constant cramping pain that peaked last night, almost prompting an ER visit. Bleeding is described as similar to menstrual bleeding. The recent uterine procedure yielded minimal tissue, suggesting complete evacuation of tissue. However, the patient is experiencing significant discomfort due to the raw inner uterine surface following the miscarriage and procedure. test remains positive, which is expected to persist for approximately 6 weeks post-miscarriage. Patient also reports emotional distress related to the miscarriage and recovery process. Plan: - Prescribe medication to stop bleeding and reduce cramping - Prescribe antibiotic - Prescribe strong pain medication for uterine pain - Medication regimen: - Take all medications as prescribed for the first 2-3 days - Continue antibiotic and bleeding control medication as directed - Use pain medication only as needed after the third day - Extend medical leave until next Tuesday (1 week from today) - Patient to provide feedback on medication effectiveness by Tuesday - Complete FMLA forms for patient's employer - Issue [id number] letter for next Tuesday - Follow-up: Patient to contact office or find clinician at the hospital if any issues arise Office Procedures OB Clinic LOC & Office Proc's Nursing/Assessment Patient Status: Established Patient OB Clinic Nursing Assessment: BP Monitoring, Medication Reconciliation, Update PMH in EMR and Vital Signs OB Clinic Coordination of Care: Consent,records obtained, informed consent, Education Simp Pt/Fam, Results/Orders obtained and Staff clarify orders Established Patient Charge Established Patient Point Assignment: 80 Established Patient Point Charge: EP Level 3 (80-115)
[2025-03-13 08:42] VITALS: BP 118/81; PULSE 86; RESP 18; TEMP 36.2; O2SAT 99; BMI 27.8
== END 2025-03-13 09:18 | disposition home or self-care (01) ==
LOC: HODSOBC 08:22
PROVIDERS: PCP Physician Assistant; Referring Provider Physician Assistant; Supervising Provider Obstetrics & Gynecology; Visit Provider Obstetrics & Gynecology
DX: O03.1 Delayed or excessive hemorrhage following incomplete spontaneous abortion (principal)
CPT/HCPCS: 99213; G0463

== ENCOUNTER → 2025-05-27 | Outpatient (CLI) | payer MEDICAID, SELFPAY ==
--- NOTE | 2025-05-27 13:30 | XR_ITS ---
Indication: Thyroid sonography complete TECHNIQUE: Grayscale sonographic images thyroid lobes Date and time: May 27, 2025 1418 hours INDICATIONS: Abnormal thyroid function tests on laboratory examination several months ago. FINDINGS: Right thyroid 6.2 cm Upper pole nodule 19 x 13 mm Midpole nodule 11 x 11 mm Lower pole nodule 32 x 27 mm Isthmus nodule cystic and solid 30 x 22 mm Left thyroid 5.8 cm Upper pole nodule 6 x 5 mm Lower pole nodule 14 x 14 mm Numerous smaller nodules IMPRESSION: Multiple thyroid nodules as above, consider ultrasound-guided fine-needle aspiration of the large vascular nodule lower pole right thyroid
== END | disposition home or self-care (01) ==
PROVIDERS: PCP Physician Assistant; Referring Provider Physician Assistant; Visit Provider Physician Assistant
DX: E04.2 Nontoxic multinodular goiter (principal)
CPT/HCPCS: 76536

== ENCOUNTER → 2025-07-12 | Outpatient (CLI) | payer MEDICAID, SELFPAY ==
[2025-07-11 13:14] LABS: Basophils # (Auto) 0.0 Thou/mm3 (0.0-0.2); Basophils % (Auto) 1 % (0-2.5); Eosinophils # (Auto) 0.1 Thou/mm3 (0.0-0.5); Eosinophils % (Auto) 2 % (0-10); Hematocrit 37.6 % (36.0-46.0); Hemoglobin 12.1 g/dL (12.0-16.0); Immature Granulocytes Auto 0.01 Thou/mm3 (0.00-0.00); Lymphocytes # (Auto) 1.8 Thou/mm3 (1.0-4.8); Lymphocytes % (Auto) 35 % (10-50); Mean Corpuscular HGB Conc 32.2 g/dl (31.0-37.0); Mean Corpuscular Hemoglobin 25.4 pg (25.0-35.0); Mean Corpuscular Volume 79 fL (80-100); Monocytes # (Auto) 0.4 Thou/mm3 (0.0-0.8); Monocytes % (Auto) 7 % (0-12); Neutrophils # (Auto) 2.7 Thou/mm3 (1.8-7.7); Neutrophils % (Auto) 55 % (37-80); Nucleated Red Blood Cell # 0.00 Thou/mm3 (0.00-0.00); Nucleated Red Blood Cell % 0 /100 WBC (0); Platelet Count 280 Thou/mm3 (140-440); RDW Standard Deviation 41.1 fL (36.4-46.3); Red Blood Count 4.76 Miln/mm3 (4.00-5.20); White Blood Count 5.0 Thou/mm3 (3.6-11.0)
[2025-07-11 13:24] LABS: INR 1.0 (0.9-1.3); Partial Thromboplastin Time 30.5 Seconds (22.0-36.0); Prothrombin Time 10.6 Seconds (9.0-12.2)
[2025-07-11 13:27] LABS: HCG,Qualitative Serum Negative
--- NOTE | 2025-07-12 08:00 | XR_ITS ---
Examination: Ultrasound-guided fine needle percutaneous aspiration thyroid nodule, right. Thyroid sonography, limited Exam date and time: 07/12/2025, 8:37 AM. INDICATION: Right thyroid nodule Technique: A timeout was completed verifying correct patient, procedure, site, positioning and special equipment if applicable. The patient was placed in supine position for the thyroid fine needle percutaneous aspiration The patient's neck was prepped and draped in sterile fashion. Maximum barrier sterile technique, hand hygiene, ultrasound sterile technique. 1% lidocaine was used to anesthetize the skin and subcutaneous tissues to the patient's right thyroid nodule. Multiple fine needle aspirations were performed and multiple thyroid specimens placed in preservative according to the [facility] protocol. Specimens appears satisfactory. The attending radiologist was present for the entire procedure. Estimated blood loss 3 cc. The patient tolerated the procedure well and there were no complications. Impression: Successful ultrasound-guided fine-needle percutaneous aspiration right thyroid nodule, .
== END | disposition home or self-care (01) ==
PROVIDERS: Radiology Diagnostic Radiology; PCP Physician Assistant; Referring Provider Physician Assistant; Visit Provider Physician Assistant
DX: E04.1 Nontoxic single thyroid nodule (principal); Z01.812 Encounter for preprocedural laboratory examination
CPT/HCPCS: 10005; 36415; 84703; 85025; 85610; 85730